=== PATIENT | male | born 1975 | race African-American/Black ===

== ENCOUNTER 2016-07-22 15:14 | Observation (INO) | payer OTHER ==
[2016-07-22] MEDS ORDERED: ASPIRIN PO STA (15:26)
--- NOTE | 2016-07-22 15:37 | EKG Report ---
Test Performed on : 07/22/2016 3:27:49 PM Test Reason : Chest Pain Blood Pressure : / mmHG Vent. Rate : 069 BPM Atrial Rate : 069 BPM P-R Int : 166 ms QRS Dur : 088 ms QT Int : 380 ms P-R-T Axes : 021 045 032 degrees QTc Int : 407 ms Normal sinus rhythm. Nonspecific T wave abnormality Abnormal ECG No previous ECGs available Unconfirmed Result
[2016-07-22 15:49] LABS: MANUAL DIFF NEEDED? NO
[2016-07-22 15:54] LABS: BASO% 0.4 % (0.0-0.8); EOS# 0.15 X1000 (0.0-0.7); EOS% 3.2 % (0.0-10.0); HEMATOCRIT 42.3 % (42.0-52.0); HEMOGLOBIN 14.2 g/dL (14.0-18.0); LYMPH# 1.89 X1000 (1.2-3.4); MCH 27.2 PG (27-31); MCHC 33.6 g/dL (33-37); MONO# 0.34 X1000 (0.11-0.59); MONO% 7.2 % (1.7-9.3); MPV 10.1 FL (7.4-10.4); NEUT% 49.2 % (42.2-75.2); PLT 282 X1000 (130-400); RBC 5.22 XMIL (4.7-6.1)
--- NOTE | 2016-07-22 15:59 | ED EKG INTERP ---
EKG Interpretation - EKG Time of EKG reading by physician:: 15:27 EKG Read and Signed by:: Andrez Conde EKG Interpretation (*Must complete 3 of following elements*): Abnormal Rate: 69 Rhythm: NSR [place]: normal QRS: normal, LBB ST Wave: non-specific ST changes
[2016-07-22 16:04] LABS: PROTIME 10.6 Seconds (9.2-11.7); PTT 24.8 Seconds (22.0-36.0)
[2016-07-22 16:36] LABS: AGAP 14; ALBUMIN 3.8 g/dL (3.5-5.0); ALKALINE PHOSPHATASE 83 U/L (32-122); BUN 13 mg/dL (8-22); CALCIUM 8.9 mg/dL (8.8-10.2); CHLORIDE 100 mmol/L (98-107); COSMO 280; GOT 18 U/L (10-34); GPT 23 U/L (10-44); MAGNESIUM 1.7 mg/dL (1.5-2.7); POTASSIUM 3.4 mmol/L (3.5-5.1); SODIUM 136 mmol/L (136-145); TCO2 22 mmol/L (25-35); TOTAL PROTEIN 7.4 g/dL (6.3-8.3)
[2016-07-22 16:48] LABS: CK PROFILE 370 U/L (24-204)
[2016-07-22 17:32] LABS: CK INDEX 1.1 (0.0-2.5); CK-MB 4.03 ng/mL (0.0-5.0)
--- NOTE | 2016-07-22 17:40 | Diag Imaging Result Document ---
PROCEDURE NAME: CHEST-2 VIEWS - 07/22/2016 CHEST 2 VIEWS: COMPARISON: 06/18/2016. FINDINGS: Heart size appears borderline enlarged and mildly increased compared to the previous exam. Inspiration is mildly shallow. There are granulomas from old granulomatous disease at the bilateral lung bases similar to the previous exam. Allowing for inspiration, the lungs otherwise appear grossly clear. There is no pleural effusion or pneumothorax identified. IMPRESSION: Borderline cardiomegaly with mild interval increase in heart size. Mildly shallow inspiration. No other acute changes.
--- NOTE | 2016-07-22 17:54 | PROVIDER DOCUMENTATION ---
HPI-Chest Pain - General Chief Complaint: Chest Pain Stated Complaint: CP/SOB Time Seen by Provider: 07/22/16 17:09 Source: patient Allergies/Adverse Reactions: Patient Allergies Allergy/AdvReac Type Severity Reaction Status Date / Time No Known Allergies Allergy Verified 07/22/16 17:54 Home Medications: Amlodipine Besylate [Norvasc] 10 mg PO DAILY 05/19/14 Insulin Humulin 70/30 [Humulin 70/30] 45 unit SUBQ QPM 07/22/16 Insulin Humulin 70/30 [Humulin 70/30] 60 unit SUBQ QAM 07/22/16 Losartan/Hydrochlorothiazide [Losartan-Hctz 50-12.5 mg Tab] 1 each PO DAILY 12/01 Omeprazole [Prilosec] 20 mg PO DAILY 07/22/16 - History of Present Illness-CP Nature of Presenting Problem: patient is 40 y/o M that presents to the with chest pain that has been worse with exertion. he has shortness of breath of with it. denies n/v or back pain. patient has history of HTN and diabetes. patient was seen by pcp who sent him here for evaluation. 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 Location: reports: substernal Chest Pain Radiation: reports: no radiation Quality of Pain: reports: tightness Severity in ED: moderate Onset/Duration: gradual, 5 days ago Timing: still present, constant Context/Activities at Onset: reports: moderate activity Modifying Factors: improves with: nothing Associated Symptoms: reports: shortness of breath. denies: back pain, dizziness , fatigue, fever/chills, nausea, vomiting Nitro Today/Relief: no nitro taken today Aspirin Treatment Today: 325 mg x 1, provided by ED Prior Chest Pain/Cardiac Workup: reports: no prior cardiac workup Similar Symptoms Previously?: No Recently Seen Here or By Another Healthcare Provider: No Review of Systems - Adult - REVIEW OF SYSTEMS - ADULT Constitutional: denies: chills, fever Eyes: reports: no symptoms reported Ears, Nose, Mouth & Throat: denies: sinus problem, throat pain, throat swelling Cardiovascular: reports: chest pain. denies: edema, palpitations Respiratory: reports: dyspnea on exertion, shortness of breath. denies: wheezing Gastrointestinal: denies: abdominal pain, diarrhea, nausea, vomiting Genitourinary: reports: no symptoms reported Musculoskeletal: denies: back pain, joint pain, neck pain Integumentary: reports: no symptoms reported Neurological: reports: no symptoms reported Psychiatric: reports: no symptoms reported Endocrine: reports: no symptoms reported Hematologic/Lymphatic: reports: no symptoms reported Allergic/Immunologic: reports: no symptoms reported All Other Systems: Reviewed and Negative Past History - Adult - PAST MEDICAL HISTORY-ADULT Review of Records: reports: Old Records Reviewed, Nursing Assessment Review, Medications Reviewed Cardiovascular: reports: HTN Endocrine/Immune: reports: Diabetes - PRIOR SURGERIES/PROCEDURES Surgical/Procedure History: reports: none - IMMUNIZATION STATUS Childhood Immunizations: UTD Flu Vaccine: UTD - FAMILY HISTORY Family History: other (family hx of heart problems, pt states that the person was up in age.) - SOCIAL HISTORY Smoking: quit greater than 1 year, cigarettes Alcohol Use Frequency: occasionally Physical Exam-General - PHYSICAL EXAM-ADULT Initial Vital Signs Reviewed: Yes - CONSTITUTIONAL General Appearance: alert, no apparent distress - EYES Eyes: PERRL/EOMI, pink conjunctivae - HEAD, EARS, NOSE, MOUTH & THROAT HENMT: normocephalic/atraumatic, moist mucous membranes, normal ENT inspection - NECK Neck: full range of motion, normal inspection. negative: lymphadenopathy - RESPIRATORY Respiratory: lungs clear, normal breath sounds, no respiratory distress, no accessory muscle use - CARDIOVASCULAR Cardiovascular: normal peripheral pulses, regular rate, rhythm, no edema, no murmur - GASTROINTESTINAL (ABDOMEN) Abdominal Exam: normal bowel sounds, non tender, soft, no organomegaly, no pulsatile mass - MUSCULOSKELETAL Back Exam: normal inspection, no vertebral tenderness Extremity: normal range of motion, non-tender, normal inspection, no pedal edema , no calf tenderness, normal capillary refill, pelvis stable - SKIN Integumentary: normal color, warm/dry - NEUROLOGIC Neurologic: grossly normal, no motor/sensory deficits - PSYCHIATRIC Psych/Mental Status: normal mood/affect, normal thought content, normal thought process, oriented x 3 Progress - PLAN OF CARE/RESULTS Progress/Plan/Lab Results: plan of care-cardiac work up Vital Signs Temp Pulse Resp BP Pulse Ox 07/22/16 17:54 65 19 158/82 93 L 07/22/16 15:31 98.2 F 70 18 162/88 94 L No Known Allergies Allergy (Verified 07/22/16 17:54) Amlodipine Besylate [Norvasc] 10 mg PO DAILY 05/19/14 Insulin Humulin 70/30 [Humulin 70/30] 45 unit SUBQ QPM 07/22/16 Insulin Humulin 70/30 [Humulin 70/30] 60 unit SUBQ QAM 07/22/16 Losartan/Hydrochlorothiazide [Losartan-Hctz 50-12.5 mg Tab] 1 each PO DAILY 12/01 Omeprazole [Prilosec] 20 mg PO DAILY 07/22/16 Laboratory 07/22/16 07/22/16 07/22/16 15:42 15:42 15:42 WBC RBC Hgb Hct MCV MCH MCHC RDW Std Deviation Plt Count MPV Immature Gran % (Auto) Neut % (Auto) Lymph % (Auto) Jay % (Auto) Eos % (Auto) Baso % (Auto) Immature Gran # (Auto) Neut # (Auto) Lymph # (Auto) Jay # (Auto) Eos # (Auto) Baso # (Auto) PT 10.6 INR 1.00 PTT (Actin FS) 24.8 Sodium Potassium Chloride Carbon Dioxide Anion Gap BUN Creatinine Estimated GFR/1.73 m2 BUN/Creatinine Ratio Glucose Calculated Osmolality Calcium Magnesium Total Bilirubin AST ALT Alkaline Phosphatase Creatine Kinase Creatine Kinase Index CK-MB (CK-2) Troponin T < 0.010 Gsz-C-Rmuecurdcgf Pept 7 Total Protein Albumin Globulin Albumin/Globulin Ratio 07/22/16 07/22/16 15:42 15:42 WBC 4.72 L RBC 5.22 Hgb 14.2 Hct 42.3 MCV 81.0 MCH 27.2 MCHC 33.6 RDW Std Deviation 14.6 H Plt Count 282 MPV 10.1 Immature Gran % (Auto) 0.0 Neut % (Auto) 49.2 Lymph % (Auto) 40.0 Jay % (Auto) 7.2 Eos % (Auto) 3.2 Baso % (Auto) 0.4 Immature Gran # (Auto) 0.00 Neut # (Auto) 2.32 Lymph # (Auto) 1.89 Jay # (Auto) 0.34 Eos # (Auto) 0.15 Baso # (Auto) 0.02 PT INR PTT (Actin FS) Sodium 136 Potassium 3.4 L Chloride 100 Carbon Dioxide 22 L Anion Gap 14 BUN 13 Creatinine 1.1 Estimated GFR/1.73 m2 > 60 BUN/Creatinine Ratio 12 Glucose 249 H Calculated Osmolality 280 Calcium 8.9 Magnesium 1.7 Total Bilirubin 0.30 AST 18 ALT 23 Alkaline Phosphatase 83 Creatine Kinase 370 H Creatine Kinase Index 1.1 CK-MB (CK-2) 4.03 Troponin T Mwe-F-Fygvwtesmbg Pept Total Protein 7.4 Albumin 3.8 Globulin 3.6 Albumin/Globulin Ratio 1.1 Orders Category Date Time Status CHEST-2 VIEWS [RAD] Stat Exams 07/22/16 15:26 Draft CBC WITH ELECTRONIC DIFF [HEME] Stat Lab 07/22/16 15:42 Completed CK PROFILE [SP CHEM] Stat Lab 07/22/16 15:42 Completed COMPREHENSIVE METABOLIC PANEL [CHEM] Stat Lab 07/22/16 15:42 Completed D-DIMER [CHEM] Stat Lab 07/22/16 15:42 Received MAGNESIUM [CHEM] Stat Lab 07/22/16 15:42 Completed PRO B-NATRIURETIC PEPTIDE Stat Lab 07/22/16 15:42 Completed PROTIME WITH INR [COAG] Stat Lab 07/22/16 15:42 Completed PTT [COAG] Stat Lab 07/22/16 15:42 Completed TROPONIN T Stat Lab 07/22/16 15:42 Completed Aspirin Med 07/22/16 15:26 Discontinued 325 mg PO STAT STA EKG [EKG] Stat Ther 07/22/16 15:26 Draft - XRAY 1 XRAY Study: Chest Impression: Abnormal XRAY Interpretation: bordeline cmg, mildy shallow inspiration - CONSULTS/PCP/HOSPITALIST Notification #1 *Consult/PCP/Hospitalist*: ( parks recreation director for hospitalist) Time Discussed: 18:05 Consult Disposition: Will see in ED - CHANGE OF SHIFT REPORT (ED Provider) Report Given and Care Transferred to:: Time of Transfer: 18:01 Items Pending: Physician Consult/Arrival (hospitalist) Tentative Impression of Patient: acs, chest pain Departure - Departure Time of Disposition Order: 18:07 DIAGNOSIS: Chest pain in adult Disposition: ADMITTED INPATIENT 09 Certified Medical Emergency: Emergent Condition: Stable Referrals: Rodney Ospina MD [Primary Care Provider] - Attestation - Scribe Verification/Attestation Scribe:: Gamaliel Carrillo Acting as Scribe for:: Andrez Conde Scribe documention review:: This chart was documented by a scribe and accurately reflects the service the provider performed and the decisions made by the provider. Physician Attestation - Physician Attestation I, the provider, attest to the following statement:: Andrez Conde Physician documentation Attestation:: This documentation recorded by the scribe accurately reflects the service I personally performed and the decisions made by me.
--- NOTE | 2016-07-22 19:12 | HISTORY AND PHYSICAL ---
HISTORY OF PRESENT ILLNESS: This is a 40-year-old, black male, who I saw was admitted back in August 2014 with vomiting. He had a previous myocardial perfusion scan as well as an echocardiogram upright. Myocardial perfusion scan was done in September 2015. He had no chest pain. Negative exercise stress test. No dysrhythmias. Normal myocardial perfusion scan. Left ventricular ejection fraction was 60%. Abdominopelvic CT done in October of this year with fatty infiltration of liver and diverticulosis. He had a chest x-ray done here in the emergency room with borderline cardiomegaly, mild interval increased heart size, mildly shallow inspiration but no infiltrates. He had an echocardiogram done in September 2015 with normal left ventricular size, ejection fraction 50%, there is inferior wall hypokinesis, aortic valve leaflets are trileaflet, mitral valve is normal, unremarkable valvular function, pulmonary pressure about 35 mmHg. The patient presented stating that for the last couple of weeks or longer he has noted pressure in his chest that seems to come with exertion. He has noticed some diaphoresis with it but no real radiation to the jaw or arm. He does not complain of any palpitations. He does smoke although he states it is occasional. He has a history of diabetes mellitus, hypertension and I am presuming hypercholesterolemia. He states the pain kind of waxes and wanes but definitely is worse when he is working and exercising. He works for [employer] and I think he does a lot of walking. PAST MEDICAL HISTORY: 1. Diabetes mellitus type 2. 2. Hypertension. 3. Diverticulitis/diverticulosis. 4. Hyperlipidemia. MEDICATIONS: I think he is on Glucophage, Glucovance, Norvasc, Cozaar. ALLERGIES: No known drug allergies. FAMILY HISTORY: No history of [place]. Father with diabetes mellitus. No history of cancer. SOCIAL HISTORY: Lives in [place]. and has children. Works at [employer]. He does smoke mostly in the summertime and occasional alcohol. REVIEW OF SYSTEMS: General: No weight gain or loss. No fever or chills. HEENT: Unremarkable. Respiratory: No increased work of breathing or dyspnea. Cardiovascular: As above. Chest: Chest pain. No palpitations. Gastrointestinal / Genitourinary: No gross hematuria or dysuria. Musculoskeletal/Neurologic: No complaints. PHYSICAL EXAMINATION: VITAL SIGNS: Today on presentation, temp 98.2 degrees, pulse 65, respirations 19, blood pressure 150/82. Height 6 feet and 0 inches. HEENT: Pupils are equal and round. CVP less than 6 cm. LUNGS: Clear in all lung lloyd. CARDIOVASCULAR EXAMINATION: Regular rhythm and rate without murmur or S3. ABDOMEN: Soft. SKIN: Warm and dry. DIAGNOSTIC: White count 4,720, hematocrit 42, platelet count 282,000. Sodium 136, potassium 3.4, chloride 100, bicarb 22, BUN 13, creatinine 1.1. Liver functions, transaminase unremarkable. CPK was 370. Troponin was less than 0.01. ProTime 10.6, INR 1.0. EKG shows normal sinus rhythm, nonspecific T-wave inversion in the inferior and anterolateral leads. No change from previous EKGs that were reviewed and old records. ASSESSMENT AND PLAN: 1. Atypical chest pain but it has some features that are worrisome. He definitely has risk factors including diabetes, hypertension, history of smoking although the family history apparently is pretty weak. He has also had a nuclear perfusion scan that was done in September which is unremarkable and an echocardiogram was unremarkable. Nonetheless we are going to admit him, rule him out, check serial cardiac enzymes and EKG. Ask Cardiology to evaluate. Suspect they will want to repeat a myocardial GXT and a myocardial perfusion scan. 2. Diabetes mellitus type 2. Check sugars. 3. Hypertension. Follow his blood pressure. 4. I have counseled him to quit smoking altogether.
[2016-07-22] MEDS ORDERED: TYLENOL PO PRN (21:32)
[2016-07-22] MEDS ORDERED: ZOFRAN IV PRN (21:32)
[2016-07-22] MEDS ORDERED: HUMULIN 70/30 SUBQ SCH (21:32)
[2016-07-22 23:02] LABS: CK-MB 3.79 ng/mL (0.0-5.0)
[2016-07-23 06:54] LABS: HDL 26 mg/dL (35-55); LDL 106 mg/dL; TRIGLYCERIDES 161 mg/dL (39-160); VLDL 32 mg/dL
[2016-07-23] MEDS ORDERED: PRILOSEC PO SCH ×2 (07:00→09:00)
[2016-07-23 07:29] LABS: CK INDEX 1.3 (0.0-2.5); CK-MB 3.76 ng/mL (0.0-5.0)
--- NOTE | 2016-07-23 07:46 | EKG Report ---
Test Performed on : 07/23/2016 06:27:20 AM Test Reason : chest pain Blood Pressure : / mmHG Vent. Rate : 062 BPM Atrial Rate : 062 BPM P-R Int : 168 ms QRS Dur : 086 ms QT Int : 414 ms P-R-T Axes : 009 037 039 degrees QTc Int : 420 ms Normal sinus rhythm. Nonspecific T wave abnormality Abnormal ECG When compared with ECG of 22-JUL-2016 15:27, (Unconfirmed) No significant change was found Confirmed by James Norman DO ([id number]) on 07/25/2016 4:14:52 PM
[2016-07-23] MEDS: HUMULIN 70/30 SUBQ SCH ×2 (08:38→12:16)
[2016-07-23] MEDS ORDERED: HYZAAR 50/12.5 MG PO SCH (09:00)
[2016-07-23] MEDS ORDERED: NORVASC PO SCH (09:00)
[2016-07-23] MEDS ORDERED: ASPIRIN PO SCH (09:00)
[2016-07-23] MEDS ORDERED: LEXISCAN ONE (09:23)
[2016-07-23 11:57] VITALS: BP 152/74
--- NOTE | 2016-07-23 14:34 | CONSULTATION ---
DATE OF CONSULTATION: 07/23/2016 CARDIOLOGY CONSULT: Cardiology consulted for chest pain. HISTORY OF PRESENT ILLNESS: Mr. Theodore is a 40-year-old black gentleman who comes with complaints of having a pressure-like sensation in his chest. He did notice some diaphoresis but the there was no radiation to the back or down the arm. He does not complain of any palpitations. There is no dizziness or syncope. He does smoke occasionally. There is history of diabetes and hypercholesterolemia. He works at the [employer]. REVIEW OF SYSTEMS: A 14-point review of system was done:Gastrointestinal System: There is no history of nausea, vomiting, diarrhea. There is no history of hematemesis or melena. Central nervous System: No focal weakness to suggest a CVA or TIA. There is no dysuria or hematuria. Respiratory System: There is no history of cough, expectoration, hemoptysis. There is no history of fevers or chills. PAST MEDICAL HISTORY: Diabetes, hypertension, diverticulosis, hyperlipidemia. MEDICATIONS: Glucophage, Glucovance, Norvasc and Cozaar. FAMILY HISTORY: No history of myocardial infarction in the family. Positive for diabetes. SOCIAL HISTORY: Patient lives in [place]. , has children. Works at [employer]. PHYSICAL EXAMINATION: Vital Signs: Blood pressure was 150/80. Cardiovascular: Normal jugular venous pressure. There no thyromegaly. No carotid bruit. First and second heart sounds were heard. There is no S3, S4 or gallop. Respiratory: Normal air entry. There are no crepitations or rhonchi. Abdomen: Soft, nontender. There was no guarding or rigidity. Bowel sounds were heard. Central nervous system: Alert and was moving all 4 extremities. Extremities: Examination of extremities revealed no pedal edema. HEENT: Atraumatic, normocephalic. Pupils were equal and reacting to light. LABORATORY EXAMINATION: Revealed he was ruled out for myocardial infarction by cardiac enzymes. Sodium 136, potassium 3.4, BUN 13, creatinine 1.1. ASSESSMENT AND PLAN: 1. Mr. Theodore is a 40-year-old black gentleman with history of diabetes, hypertension. He was admitted with chest pain. He has been ruled out for myocardial infarction by cardiac enzymes. Given his increased risk factors we will set him up to undergo a Cardiolite stress test to rule out ischemia. I have not made any other changes to his medication next. 2. Diabetes. Continue with his current medications. 3. He has history of gastroesophageal reflux disease. Continue with omeprazole. 4. Hypertension is under control. He is on amlodipine and losartan. I have not made any other changes to his medications. Thank you for the consult. We will follow hospital course.
--- NOTE | 2016-07-23 14:39 | Diag Imaging Result Document ---
PROCEDURE NAME: MYOCARDIAL PERF SCAN, STR/REST - 07/23/2016 LEXISCAN CARDIOLITE STRESS TEST: Lexiscan was infused per standard protocol. There was no chest pain. Stress electrocardiogram was negative for ischemia. Following Lexiscan infusion, Cardiolite was injected. 15.9 mCi of Cardiolite was injected for the rest phase, 45.7 mCi of Cardiolite was injected for the stress phase. Images revealed significant chest wall attenuation. There is low-grade, fixed defect in the left ventricular apex with normal wall motion. Left ventricular ejection fraction by gated SPECT was 55%. There is no evidence of ischemia. This could represent scar versus attenuation defect. Left ventricular ejection fraction by gated SPECT was 54%. Wall motion was normal. CONCLUSIONS: 1. No chest pain. 2. Negative Lexiscan stress electrocardiogram. 3. Myocardial perfusion images revealed no evidence of ischemia. 4. There is low-grade fixed defect in the left ventricular apex with normal wall motion and significant chest wall attenuation. This could likely represent attenuation defect versus scar. 5. Left ventricular ejection fraction 54%. Wall motion was normal.
[2016-07-23 14:46] LABS: CK INDEX 1.3 (0.0-2.5); CK-MB 3.85 ng/mL (0.0-5.0)
--- NOTE | 2016-07-24 12:17 | DISCHARGE SUMMARY ---
ADMISSION DATE: 07/22/2016 DISCHARGE DATE: 07/23/2016 SUBJECTIVE: A 40-year-old admitted back in August 2014, with vomiting, previous myocardial perfusion scan was noted and echocardiogram as well in September 2015 which were unremarkable. Negative stress test. No dysrhythmias. Normal perfusion scan. Ejection fraction estimated at 60%. He presented this time again with some chest pressure that seems to wax and wane. It seems to be worse with exertion. He does have risk factors. PAST MEDICAL HISTORY: 1. Diabetes mellitus type 2. 2. Hypertension. 3. Diverticulosis. 4. Hyperlipidemia. 5. He does smoke. HOSPITAL COURSE: Cardiac enzymes, troponin and CPK were negative. EKG did not show any suspicious ST-segment changes. Myocardial perfusion scan done this morning. Negative Lexiscan stress test and negative electrocardiogram perfusion images revealed no evidence of ischemia. We will let him go home. I do not see any change in his medication. DISCHARGE INSTRUCTIONS: I want him to follow up with primary care. He will continue his current medications Norvasc 10 mg a day, aspirin 325 daily, Hyzaar 50/12.5 daily and his current dose of insulin 45 units 70-30 in the in the evening, 60 units in the morning. Prilosec 20 mg a day
== END 2016-07-23 16:20 | disposition home or self-care (01) ==
LOC: ED 15:14 → 4N 15:15
PROVIDERS: ATTEND Emergency Medicine
DX: R07.89 Other chest pain (principal); I10 Essential (primary) hypertension; E78.00 Pure hypercholesterolemia, unspecified; E11.9 Type 2 diabetes mellitus without complications; K57.90 Diverticulosis of intestine, part unspecified, without perforation or abscess without bleeding; K21.9 Gastro-esophageal reflux disease without esophagitis; R06.02 Shortness of breath; K76.0 Fatty (change of) liver, not elsewhere classified; Z79.899 Other long term (current) drug therapy; Z79.4 Long term (current) use of insulin; F17.210 Nicotine dependence, cigarettes, uncomplicated; Z71.6 Tobacco abuse counseling; Z83.3 Family history of diabetes mellitus
CPT/HCPCS: 71020; 78452; 80053; 80061; 82550; 82553; 82948; 83735; 83880; 84484; 85025; 85379; 85610; 85730; 93005; 93010; 93017; 99285; A9500